=== PATIENT | female | born 1980 | race Caucasian/White ===

== ENCOUNTER 2018-11-07 19:26 | Emergency (ER) | payer OTHER ==
[~2018-11-07] VITALS: Ht 157.5 cm; Wt 63.5 kg
[2018-11-07 19:26] VITALS: BP 167/89
--- NOTE | 2018-11-07 19:26 | NUR ---
TO BED #05, BROUGHT IN BY AMBULANCE WITH C/O GEN WEAKNESS, DIZZINESS FROM HOME
--- NOTE | 2018-11-07 19:35 | NUR ---
37 Y/O F BIBA WITH C/O GENERALIZED WEAKNESS X5MINS ECHO VASCULAR TECHNOLOGIST. AAOX4. PER PT "SCHEDULED FOR COLONOSCOPY YESTERDAY BUT IT WAS RESCHEDULE." PT HAD NOT CONSUMED FOOD OR WATER DURING THAT TIME. PT STATED "I WAS AT HOME AND I STARTED TO FEEL WEAK AND MY HANDS AND FEET WERE ASHEN." PT HAS PMH OF DM, HTN, AND HLYD. SKIN NORMAL PER ETHNICITY. PT HYPERTENSIVE AND TACHYCARDIC. BP 167/89 AND HR 116. -IV TO L AC INSERTED BY EMS. IV PATENT.
--- NOTE | 2018-11-07 20:40 | NUR ---
PT STATED "I'M FEELING WEAK." BP 164/[address] MEJIA MADE AWARE. VERBAL ORDER FOR 1L NS BOLUS IVF GIVEN AND COMPLETED.
--- NOTE | 2018-11-07 21:11 | NUR ---
BLOOD DRAWN AND TAKEN TO LAB.
[2018-11-07 21:28] LABS: BASOPHILS % (AUTO) 0.2 % (0.0-2.0); EOSINOPHILS % (AUTO) 0.2 % (0.0-4.0); HEMATOCRIT 38.1 % (36-48); HEMOGLOBIN 12.8 g/dL (12.0-16.0); LYMPHOCYTES # (AUTO) 1.5 K/uL (2.5-16.5); LYMPHOCYTES % (AUTO) 10.3 % (20.5-51.1); MEAN CORPUSCULAR HEMOGLOBIN 31 pg (27-31); MEAN CORPUSCULAR HGB CONC 34 g/dL (33-37); MEAN CORPUSCULAR VOLUME 91.3 fL (80-94); MONOCYTES # (AUTO) 0.6 K/uL (0.8-1.0); MONOCYTES % (AUTO) 3.8 % (1.7-9.3); NEUTROPHILS # (AUTO) 12.3 K/uL (1.8-7.7); NEUTROPHILS % (AUTO) 85.5 % (42.2-75.2); PLATELET COUNT (AUTO) 294 K/uL (140-450); RED BLOOD CELL COUNT(AUTO) 4.17 MIL/uL (4.20-5.40); WHITE BLOOD COUNT (AUTO) 14.4 K/uL (4.8-10.8)
[2018-11-07 21:51] LABS: ALBUMIN 4.4 g/dL (3.4-5.0); ANION GAP 14.5 (8-16); CARBON DIOXIDE 25.5 mmol/L (21-32); CREATININE 0.9 mg/dL (0.6-1.3); THYROID STIMULATING HORMONE 2.17 uIU/mL (0.34-3.74); TOTAL BILIRUBIN 0.2 mg/dL (0.0-1.0)
[2018-11-07] MEDS ORDERED: NACL 0.9% 1,000 ML IV ONE ×2 (22:15→23:05)
[2018-11-07 22:34] LABS: APPEARANCE,URINE CLEAR (CLEAR); BILIRUBIN,URINE NEGATIVE (NEGATIVE); BLOOD, URINE 2+ (NEGATIVE); COLOR,URINE YELLOW (YELLOW); LEUKOCYTE ESTERASE ,URINE NEGATIVE (NEGATIVE); NITRITE, URINE NEGATIVE (NEGATIVE); UGLUCOSE TRACE (NEGATIVE)
--- NOTE | 2018-11-07 22:38 | NUR ---
PT. AMBULATED TO BATHROOM.
--- NOTE | 2018-11-07 22:50 | NUR ---
PT AWAKE AND ALERT. PER PT "I'M FEELING A LITTLE BIT BETTER." VSS. BEDRAIL X1 UP. WILL CONTINUE TO MONITOR.
--- NOTE | 2018-11-07 22:53 | NUR ---
Dr. Escalante examining patient.
[2018-11-07 23:36] LABS: RBC,URINE 0-5 /HPF (0-5); WBC,URINE 0-5 /HPF (0-5)
[2018-11-08] MEDS ORDERED: PIPERACILLIN/TAZOBACTAM 3.375 GM in DEXTROSE 5% 50 ML IV ONE (01:15)
[2018-11-08] MEDS ORDERED: VANCOMYCIN 1,000 MG in DEXTROSE 5% 250 ML IV ONE (01:15)
[2018-11-08] MEDS ORDERED: PIPERACILLIN/TAZOBACTAM 3.375 GM VIAL IV ONE ×2 (01:34)
--- NOTE | 2018-11-08 01:37 | NUR ---
PT AMBULATED TO RESTROOM. STEADY GAIT OBSERVED.
[2018-11-08] MEDS ORDERED: POTASSIUM CHLORIDE 10 MEQ TABER PO ONE (01:55)
[2018-11-08] MEDS ORDERED: VANCOMYCIN 1,000 MG VIAL ONE (02:08)
[2018-11-08] MEDS ORDERED: HEPARIN PER PHARMACY MC STA (03:32)
[2018-11-08] MEDS ORDERED: hePARIN / DEXT 5% PREMIX 250 ML IV ONE (03:35)
[2018-11-08] MEDS ORDERED: ASPIRIN 325 MG TAB PO ONE (04:05)
--- NOTE | 2018-11-08 05:41 | NUR ---
SPOKE WITH [facility] WITH ETA 30MINUTES TO 1 HOUR.
--- NOTE | 2018-11-08 06:16 | NUR ---
[facility] AT BEDSIDE
[2018-11-08 06:37] VITALS: BP 140/79
--- NOTE | 2018-11-08 06:37 | NUR ---
PT TAKEN BY [facility] TO [facility] ROOM 444
--- NOTE | 2018-11-08 06:37 | NUR ---
Patient to be transferred to [facility]. Is being transferred due to higher level of care. Receiving facility has accepting physician and available space. ER physician has signed transfer form. Patient or responsible alliance party has agreed to transfer and signed form. Patient belongings inventoried and will be sent with patient. Copy of nursing notes, lab reports, EKG, Physicians Orders and X-rays to be sent with patient. Report called to LEONEL Macdonald at receiving facility.
--- NOTE | 2018-11-08 06:40 | NUR ---
REPORT CALLED TO LEONEL WILKERSON AT [facility]. [phone]
[2018-11-08 08:47] LABS: ANION GAP 13.7 (8-16); CARBON DIOXIDE 28.3 mmol/L (21-32); CREATININE 0.7 mg/dL (0.6-1.3)
== END 2018-11-08 06:37 | disposition short-term general hospital (02) ==
LOC: MED 19:26
DX: I21.4 Non-ST elevation (NSTEMI) myocardial infarction (principal); R42 Dizziness and giddiness; R00.0 Tachycardia, unspecified; E11.9 Type 2 diabetes mellitus without complications; I10 Essential (primary) hypertension; E78.5 Hyperlipidemia, unspecified; Z98.51 Tubal ligation status
CPT/HCPCS: 36415; 71045; 71275; 80048; 80053; 81001; 81025; 83605; 83880; 84443; 84484; 85025; 85379; 87040; 93005; 96361; 96365; 96366; 96367; 99291; 99292; J1644; J2543; J3370; Q9967

== ENCOUNTER 2023-10-20 11:36 | Emergency (ER) | payer OTHER ==
[~2023-10-20] VITALS: Ht 154.9 cm; Wt 57.2 kg
[2023-10-20 11:54] VITALS: BP 147/81; PULSE 58; RESP 20; TEMP 99; O2SAT 100
[2023-10-20 12:33] LABS: BASOPHILS % (AUTO) 0.4 % (0.0-2.0); EOSINOPHILS % (AUTO) 0.4 % (0.0-4.0); HEMATOCRIT 39.6 % (36-48); HEMOGLOBIN 13.1 g/dL (12.0-16.0); LYMPHOCYTES # (AUTO) 1.7 K/uL (2.5-16.5); LYMPHOCYTES % (AUTO) 31.3 % (20.5-51.1); MEAN CORPUSCULAR HEMOGLOBIN 30 pg (27-31); MEAN CORPUSCULAR HGB CONC 33 g/dL (33-37); MEAN CORPUSCULAR VOLUME 89.5 fL (80-94); MONOCYTES # (AUTO) 0.3 K/uL (0.8-1.0); MONOCYTES % (AUTO) 4.9 % (1.7-9.3); NEUTROPHILS # (AUTO) 3.5 K/uL (1.8-7.7); PLATELET COUNT (AUTO) 247 K/uL (140-450); RED BLOOD CELL COUNT(AUTO) 4.42 MIL/uL (4.20-5.40); RED CELL DISTRIBUTION WIDTH 13.6 % (11.6-13.7); WHITE BLOOD COUNT (AUTO) 5.5 K/uL (4.8-10.8)
[2023-10-20 12:47] LABS: ANION GAP 14.4 (8-16); CALCIUM 8.9 mg/dL (8.5-10.1); CARBON DIOXIDE 25.8 mmol/L (21-32); CREATININE 0.6 mg/dL (0.6-1.3); POTASSIUM 3.2 mmol/L (3.5-5.1)
[2023-10-20 13:00] LABS: ALANINE AMINOTRANSFERASE 14 U/L (12-78); ALBUMIN 4.1 g/dL (3.4-5.0); ALKALINE PHOSPHATASE 63 U/L (50-136); ASPARTATE AMINOTRANSFERASE 14 U/L (15-37); BILIRUBIN,DIRECT 0.1 mg/dL (0.0-0.3); PHOSPHORUS 2.6 mg/dL (2.5-4.9); THYROID STIMULATING HORMONE 0.37 uIU/mL (0.34-3.74); TOTAL BILIRUBIN 0.2 mg/dL (0.0-1.0); TOTAL PROTEIN, SERUM 7.9 g/dL (6.4-8.2)
[2023-10-20 13:22] LABS: PROTHROMBIN TIME 10.5 secs (10.8-13.4)
[2023-10-20 13:42] LABS: D-DIMER < 100 ng/ml (0-400)
[2023-10-20] MEDS: POTASSIUM CHLORIDE 10 MEQ TABER PO ONE (13:43)
[2023-10-20 14:03] LABS: FLU A ANTIGEN negative (NEGATIVE); FLU B ANTIGEN negative (NEGATIVE)
[2023-10-20 14:03] LABS: APPEARANCE,URINE CLEAR (CLEAR); BILIRUBIN,URINE NEGATIVE (NEGATIVE); BLOOD, URINE 1+ (NEGATIVE); COLOR,URINE YELLOW (YELLOW); LEUKOCYTE ESTERASE ,URINE NEGATIVE (NEGATIVE); NITRITE, URINE NEGATIVE (NEGATIVE); PROTEIN,URINE NEGATIVE (NEGATIVE); UGLUCOSE NEGATIVE (NEGATIVE); UROBILINOGEN,URINE 0.2 EU/dL (0.2 - 1)
[2023-10-20 14:13] LABS: WBC,URINE 0-5 /HPF (0-5)
[2023-10-20 14:16] LABS: BACTERIA,URINE 10-30 (MOD) /HPF (None Seen); MUCUS,URINE 1+ /LPF (None Seen); SQUAMOUS EPITHELIAL CELL,UR 4-10 (MOD) /LPF (0-3 (FEW))
[2023-10-20] MEDS: POTASSIUM CHL 20 MEQ/NACL 0.9% 1,000 ML IV ONE (15:00)
[2023-10-20 16:07] VITALS: BP 155/82; PULSE 72; RESP 16; TEMP 98; O2SAT 98
== END 2023-10-20 16:07 | disposition short-term general hospital (02) ==
LOC: MED 11:36
DX: E87.6 Hypokalemia (principal); R00.8 Other abnormalities of heart beat; Z20.822 Contact with and (suspected) exposure to COVID-19; E11.9 Type 2 diabetes mellitus without complications; I10 Essential (primary) hypertension; E78.5 Hyperlipidemia, unspecified
CPT/HCPCS: 36415; 71045; 80048; 80076; 81001; 81025; 82948; 83735; 83880; 84100; 84443; 84484; 85025; 85379; 85610; 85730; 87086; 87426; 87804; 93005; 96365; 99285; J7030